=== PATIENT | male | born 1980 | race Caucasian/White ===

== ENCOUNTER 2020-10-06 09:07 | Outpatient (CLI) | payer OTHER, SELFPAY ==
[2020-10-06 09:31] LABS: Hematocrit 44.4 % (42.0-52.0); Hemoglobin 13.7 g/dL (14.0-18.0); Mean Corpuscular HGB Conc 30.9 g/dl (32-36); Mean Corpuscular Hemoglobin 20.9 pg (26-34); Mean Corpuscular Volume 67.6 fl (80-100); Mean Platelet Volume 9.6 fl (7.4-10.4); Platelet Count Result 135 k/mm3 (150-375); Red Blood Count 6.57 M/mm3 (4.6-6.20); White Blood Count 3.5 K/mm3 (4.5-10.0)
[2020-10-06 09:42] LABS: Potassium 4.2 mmol/L (3.4-5.0)
[2020-10-06 09:46] LABS: Alanine Aminotransferase 37 U/L (4-50); Albumin Level 4.1 g/dL (3.5-5.1); Alkaline Phosphatase 67 U/L (38-126); Anion Gap 5 mmol/L (8-16); Aspartate Amino Transferase 32 U/L (17-59); Bilirubin,Total 0.4 mg/dL (0.2-1.3); Blood Urea Nitrogen 14 mg/dL (9-20); Calcium 9.2 mg/dL (8.4-10.2); Carbon Dioxide 29 mmol/L (22-30); Chloride 104 mmol/L (98-107); Cholesterol 171 mg/dL (0-200); Estimated Glomerular Filt Rate > 60; Glucose 97 mg/dL (75-110); HDL Direct 26 mg/dL; Sodium 138 mmol/L (137-145); Triglycerides 286 mg/dL (<150)
[2020-10-06 09:54] LABS: LDL Cholesterol Direct 87 mg/dL
== END 2020-10-06 09:08 | disposition home or self-care (01) ==
PROVIDERS: PCP Family Medicine; Visit Provider Family Medicine
DX: E66.3 Overweight (principal); F17.200 Nicotine dependence, unspecified, uncomplicated; E04.2 Nontoxic multinodular goiter
CPT/HCPCS: 36415; 80053; 80061; 84443; 85027

== ENCOUNTER 2020-10-21 08:56 | Outpatient (CLI) | payer OTHER, SELFPAY ==
[2020-10-21 09:15] LABS: Basophils Percent Auto 0.7 % (0.2-1.2); Eosinophils Absolute Auto 0.1 K/mm3 (0-0.3); Eosinophils Percent Auto 2.1 % (0-4.4); Hematocrit 45.4 % (42.0-52.0); Immature Granulocyte Absolute 0.02 K/mm3 (0.00-0.031); Immature Granulocyte Percent A 0.5 % (0-0.5); Immature Reticulocyte Fraction 11.3 % (3.0-15.9); Lymphocytes Absolute Auto 1.25 K/mm3 (0.9-3.2); Lymphocytes Percent Auto 29.8 % (18.3-44.2); Mean Corpuscular HGB Conc 30.8 g/dl (32-36); Mean Corpuscular Hemoglobin 20.8 pg (26-34); Mean Corpuscular Volume 67.5 fl (80-100); Mean Platelet Volume 9.3 fl (7.4-10.4); Monocytes Absolute Auto 0.5 K/mm3 (0.1-0.6); Monocytes Percent Auto 11.7 % (2.6-8.5); Neutrophils Absolute Auto 2.3 K/mm3 (1.3-6.7); Neutrophils Percent Auto 55.2 % (45.5-73.1); Platelet Count Result 174 k/mm3 (150-375); Red Blood Count 6.73 M/mm3 (4.6-6.20); Red Cell Distribution Width 17.7 % (11.5-14.5); Reticulocyte Hemoglobin Conten 25.1 pg (28.2-35.7); Reticulocyte Percent 1.26 % (0.7-4.3); Reticulocytes Absolute 0.08 B/L (32.2-175.7); White Blood Count 4.2 K/mm3 (4.5-10.0)
[2020-10-21 09:57] LABS: Carcinoembryonic Antigen 0.7 ng/mL (0.0-3.0)
[2020-10-21 09:58] LABS: Iron 101 ug/dL (49-181)
[2020-10-28 23:52] LABS: Hematocrit 43.1 % (38.5-50.0); Hemoglobin 13.6 g/dL (13.2-17.1); MCH 20.9 pg (27.0-33.0); MCV 66.1 FL (80.0-100.0); RDW 16.1 % (11.0-15.0); Red Blood Cell Count 6.52 Mill/uL (4.20-5.80)
== END 2020-10-21 08:57 | disposition home or self-care (01) ==
PROVIDERS: PCP Family Medicine; Visit Provider Family Medicine
DX: E61.1 Iron deficiency (principal); R71.8 Other abnormality of red blood cells
CPT/HCPCS: 36415; 82378; 82728; 83021; 83540; 85025; 85046

== ENCOUNTER 2021-02-26 15:50 | Outpatient (CLI) | payer OTHER, SELFPAY | END 2021-02-26 15:51 | disposition home or self-care (01) | LOC: ANHCOVIDVC 15:50 | PROVIDERS: PCP Family Medicine | DX: Z23 Encounter for immunization (principal) | CPT/HCPCS: 0001A; 91300 ==

== ENCOUNTER 2021-03-19 15:42 | Outpatient (CLI) | payer OTHER, SELFPAY | END 2021-03-19 15:43 | disposition home or self-care (01) | LOC: ANHCOVIDVC 15:42 | PROVIDERS: PCP Family Medicine | DX: Z23 Encounter for immunization (principal) | CPT/HCPCS: 0002A; 91300 ==

== ENCOUNTER 2022-06-23 09:31 | Outpatient (CLI) | payer OTHER, SELFPAY ==
[2022-06-23 13:06] LABS: Basophils Percent Auto 0.6 % (0.2-1.2); Eosinophils Absolute Auto 0.1 K/mm3 (0-0.3); Eosinophils Percent Auto 2.6 % (0-4.4); Hematocrit 46.9 % (42.0-52.0); Hemoglobin 14.2 g/dL (14.0-18.0); Immature Granulocyte Absolute 0.01 K/mm3 (0.00-0.031); Immature Granulocyte Percent A 0.3 % (0-0.5); Lymphocytes Absolute Auto 1.02 K/mm3 (0.9-3.2); Lymphocytes Percent Auto 29.2 % (18.3-44.2); Mean Corpuscular HGB Conc 30.3 g/dl (32-36); Mean Corpuscular Hemoglobin 20.4 pg (26-34); Mean Corpuscular Volume 67.5 fl (80-100); Mean Platelet Volume 10.3 fl (7.4-10.4); Monocytes Absolute Auto 0.4 K/mm3 (0.1-0.6); Monocytes Percent Auto 10.9 % (2.6-8.5); Neutrophils Percent Auto 56.4 % (45.5-73.1); Platelet Count Result 176 k/mm3 (150-375); Red Blood Count 6.95 M/mm3 (4.6-6.20); Red Cell Distribution Width 17.8 % (11.5-14.5); White Blood Count 3.5 K/mm3 (4.5-10.0)
[2022-06-23 13:30] LABS: Alanine Aminotransferase 32 U/L (6-50); Alkaline Phosphatase 58 U/L (38-126); Anion Gap 11 mmol/L (8-16); Aspartate Amino Transferase 26 U/L (17-59); Bilirubin,Total 0.4 mg/dL (0.2-1.3); Blood Urea Nitrogen 14 mg/dL (9-20); Calcium 9.3 mg/dL (8.4-10.2); Carbon Dioxide 25 mmol/L (22-30); Chloride 102 mmol/L (98-107); Cholesterol 219 mg/dL (0-200); Estimated Glomerular Filt Rate > 60; Glucose 90 mg/dL (65-110); HDL Direct 28 mg/dL; Potassium 4.2 mmol/L (3.4-5.0); Sodium 138 mmol/L (137-145); Triglycerides 185 mg/dL (<150)
[2022-06-23 13:31] LABS: LDL Cholesterol Direct 127 mg/dL
[2022-06-23 14:34] LABS: Microcytosis 1+ (NORMAL); Ovalocytes 1+ (NORMAL); Platelet Estimate Adequate (Adequate)
[2022-06-23 16:20] LABS: Albumin Level 4.2 g/dL (3.5-5.1)
== END 2022-06-23 09:32 | disposition home or self-care (01) ==
LOC: ANHGOSHLAB 09:34
PROVIDERS: PCP Family Medicine; Visit Provider Family Medicine
DX: Z00.00 Encounter for general adult medical examination without abnormal findings (principal); E04.2 Nontoxic multinodular goiter; R71.8 Other abnormality of red blood cells
CPT/HCPCS: 36415; 80053; 80061; 82728; 84443; 85025

== ENCOUNTER 2023-01-26 17:06 | Outpatient (CLI) | payer OTHER, SELFPAY ==
--- NOTE | ~2023-01-26 | XR_ITS ---
XR chest 2V 01/26/2023 17:28 Indication: Cough Procedure: 2 view chest Comparison: No prior studies for comparison. Findings: Heart size normal. No focal air space disease, pulmonary edema, pleural effusion or suspect ed pneumothorax. There is a calcified granuloma left mid thorax. Impression: 1: No acute cardiopulmonary disease. Reviewed, dictated and finalized at location A. Impression: 1: No acute cardiopulmonary disease.
== END 2023-01-26 17:07 | disposition home or self-care (01) ==
PROVIDERS: PCP Family Medicine; Visit Provider Family Medicine
DX: R05.9 Cough, unspecified (principal)
CPT/HCPCS: 71046

== ENCOUNTER 2023-06-22 11:04 | Outpatient (CLI) | payer OTHER, SELFPAY ==
[2023-06-22 13:15] LABS: Kit Draw Collected
== END 2023-06-22 11:05 | disposition home or self-care (01) ==
LOC: ANHGOSHLAB 11:06
PROVIDERS: PCP Family Medicine; Visit Provider Family Medicine
DX: Z00.00 Encounter for general adult medical examination without abnormal findings (principal); E04.2 Nontoxic multinodular goiter; R71.8 Other abnormality of red blood cells; Z11.59 Encounter for screening for other viral diseases
CPT/HCPCS: 36415